=== PATIENT | male | born 1975 | race Hispanic/Latino ===

== ENCOUNTER 2021-03-10 22:17 | Emergency (ER) | payer OTHER ==
[2021-03-10] MEDS ORDERED: KETOROLAC TROMETHAMINE 30MG/ML ONE (22:40)
[2021-03-10] MEDS ORDERED: CYCLOBENZAPRINE HCL 10 MG TABLET ONE (22:41)
[2021-03-10] MEDS ORDERED: HYDROCODONE/ACETAMINOPHEN 10/325 MG TAB ONE (22:41)
== END 2021-03-10 23:19 | disposition home or self-care (01) ==
LOC: EDH 22:17
DX: S42.021A Displaced fracture of shaft of right clavicle, initial encounter for closed fracture (principal); E11.9 Type 2 diabetes mellitus without complications; Z72.0 Tobacco use; V29.49XA Motorcycle driver injured in collision with other motor vehicles in traffic accident, initial encounter; Y93.89 Activity, other specified; Y92.89 Other specified places as the place of occurrence of the external cause; Y99.8 Other external cause status
CPT/HCPCS: 73000; 73030; 96372; 99284; J1885